=== PATIENT | male | born 1965 | race Hispanic/Latino ===

== ENCOUNTER → 2017-12-23 | Outpatient (CLI) | payer OTHER ==
--- NOTE | 2017-12-23 15:06 | Diagnostic Imaging Report ---
PROCEDURE: X-RAY CHEST, TWO VIEWS COMPARISON: None. INDICATIONS: DYSPNEA, SHORTNESS OF BREATH FINDINGS: LUNGS: Hazy opacity in the left hilum has no definitive correlate on lateral projection. Right lung is clear. PLEURA: No effusions or pneumothorax. HEART \T\ MEDIASTINUM: The heart is within normal size-limits. BONES \T\ SOFT TISSUES: No focal osseous lesions. Soft tissues are unremarkable. CONCLUSION: Hazy opacity left mid lung field is suggestive of infiltrate. Recommend close interval follow-up with chest x-ray to document interval change or resolution. Dictated by: Mary Hull M.D. on 12/23/2017 at 15:06 Electronically approved by: Mary Hull M.D. on 12/23/2017 at 15:06
== END ==
LOC: RAD 14:27
PROVIDERS: ATTEND Family Medicine
DX: R06.00 Dyspnea, unspecified (principal)
CPT/HCPCS: 71046

== ENCOUNTER → 2018-01-09 | Outpatient (CLI) | payer OTHER ==
[~2018-01-09] MED LIST: IOPAMIDOL 370 MG/ML 200 ML INFUS..BTL INJ ONE; SODIUM CHLORIDE 0.9% 50ML 50 ML ONE
--- NOTE | 2018-01-09 10:51 | Diagnostic Imaging Report ---
PROCEDURE: CT scan of the chest WITH intravenous contrast, using standard protocol. TECHNIQUE: The chest was scanned utilizing a multidetector helical scanner from the lung apex through the level of the adrenal glands after the IV administration of 100 cc of Isovue 370. Coronal and sagittal multiplanar reformations were obtained. COMPARISON: Chest radio graph 12/23/2017. INDICATIONS: ABNORMAL CXR, COUGH, WHEEZING FINDINGS: Lines/tubes: None. Lungs and Airways: No consolidation, bronchiectasis, or gross fibrotic change. Specifically, no consolidation or groundglass opacity corresponding to the left hilar opacity described on the comparison chest radiograph. Trachea, mainstem bronchi, and central lobar and segmental bronchi are patent. Pleura: No pleural effusion or pneumothorax. Heart and mediastinum: Visualized portions of the thyroid gland are unremarkable. No ectasia or aneurysmal dilatation of the thoracic aorta. Pulmonary outflow tract is of normal caliber. Great vessel origins are normal in caliber and configuration. No pericardial effusion. No axillary, hilar, or mediastinal lymphadenopathy. Soft tissues: No focal soft tissue abnormalities. Abdomen: The 2.8 cm lobulated simple cyst in hepatic segment 2-3, average internal attenuation 15 Hounsfield units. Additional subcentimeter hypoattenuating lesion in segment 4A, too small to further characterize but likely to also represent a small cyst. Visualized portions of the spleen, pancreatic tail, adrenals, and kidneys are unremarkable. Bones: No osseous destructive lesions. IMPRESSION: Normal CT appearance of the lungs. Left perihilar opacity described on the comparison chest radiograph 12/23/[address] correlate and presumably represented summation of vascular structures. Dictated by: Scooter Morfin M.D. on 01/09/2018 at 10:51 Electronically approved by: Scooter Morfin M.D. on 01/09/2018 at 10:51
== END ==
LOC: CT 09:40
PROVIDERS: ATTEND Family Medicine
DX: R91.8 Other nonspecific abnormal finding of lung field (principal)
CPT/HCPCS: 71260; Q9967

== ENCOUNTER → 2021-08-02 | Outpatient (CLI) | payer BC | LOC: RAD 11:29 | PROVIDERS: ATTEND Family Medicine | DX: M54.50 Low back pain, unspecified (principal) | CPT/HCPCS: 72110 ==